=== PATIENT | male | born 1995 | race African-American/Black ===

== ENCOUNTER 2022-11-13 14:33 | Emergency (ER) | payer OTHER ==
--- NOTE | 2022-11-13 15:06 | RAD REPORT ---
EXAM DESCRIPTION: RAD - Hand Left 3 View - 11/13/2022 2:57 pm CLINICAL HISTORY: injury, swelling COMPARISON: No comparisons FINDINGS/IMPRESSION: Fractures suspected at the carpus and proximal metacarpal which are difficult t o better characterize due to positioning. Cannot exclude dislocation as well.Consider CT for further evaluation.
[2022-11-13] MEDS ORDERED: HYDROCODONE/APAP 10/325 TAB ONE (15:54)
--- NOTE | 2022-11-13 15:55 | RAD REPORT ---
EXAM DESCRIPTION: CT - Hand Left Wo Con - 11/13/2022 3:35 pm CLINICAL HISTORY: hand injury COMPARISON: No comparisons FINDINGS: Impaction fracture present along the dorsal aspect of the hamate with portions of the [place] cular surface displaced posteriorly. There is a comminuted fracture at the base of the fourth proxima l metacarpal with intra-articular extension. The fourth metacarpal is displaced posteriorly and remai ns articulated with the hamate fragment. . IMPRESSION: Fractures involving the dorsal articular surface of the hamate and proximal fourth metac arpal with intra-articular extension and significant dorsal displacement.
[2022-11-13 17:01] LABS: SARS-CoV-2 Antigen Rapid Res Negative (Negative)
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
[2022-11-13 18:31] VITALS: TEMP 98.4; O2SAT 100
[2022-11-13 18:35] VITALS: BP 107/80
== END 2022-11-13 18:22 | disposition home or self-care (01) ==
LOC: ER 14:33
PROC: 2W3DX1Z Immobilization of Left Lower Arm using Splint (ICD-10-PCS; principal; 2022-11-13)
DX: S62.305A Unspecified fracture of fourth metacarpal bone, left hand, initial encounter for closed fracture (principal); S62.142A Displaced fracture of body of hamate [unciform] bone, left wrist, initial encounter for closed fracture; F17.210 Nicotine dependence, cigarettes, uncomplicated; Z20.822 Contact with and (suspected) exposure to COVID-19
CPT/HCPCS: 36415; 73200; 87811; 99284